=== PATIENT | female | born 1980 | race Caucasian/White ===

== ENCOUNTER 2017-01-21 18:26 | Emergency (ER) | payer BC ==
[2017-01-21 18:38] VITALS: BP 118/92
[2017-01-21] MEDS ORDERED: Acetaminophen/HYDROcodone 325-5 MG Tab PO ONE (19:02)
--- NOTE | 2017-01-21 19:06 | EDM.PDOC ---
ED HPI GENERAL MEDICAL PROBLEM - General Chief Complaint: Lower Extremity Injury/Pain Stated Complaint: RT FOOT PAIN Time Seen by Provider: 01/21/17 18:49 Source of Information: Reports: Patient History Limitations: Reports: No Limitations - History of Present Illness INITIAL COMMENTS - FREE TEXT/NARRATIVE: Patient is a 36-year-old female who presents to the ED complaining of right foot pain. [facility] that [facility] foot/ankle needed to pop. Pain has worsened throughout the course of the afternoon. States she's been unable to place any weight. She utilizes crutches to ambulate to the ED. Pain is located from the arch of the right foot extends over the dorsal aspect into the fifth metatarsal. She has increasing pain with flexion extension of her toes and also of the ankle. No known trauma precipitated this discomfort today. Denies any numbness or tingling, swelling, bruising, redness, increased warmth to any joints, history of gout, or any additional complaints. Pain is currently a 10 out of 10. Of note patient did stop the patient toe on the right foot proximal to half weeks ago with no residual symptoms. Right Feet Pain Score (Numeric/FACES): 10 - Related Data Allergies Allergy/AdvReac Type Severity Reaction Status Date / Time Penicillins Allergy Hives Verified 01/21/17 18:39 Home Meds: Home Meds Acetaminophen/HYDROcodone [Warren 325-5 MG] 1 tab PO Q6H PRN #8 tablet 01/21/17 [ Rx] LORazepam [Ativan] 0.5 mg PO BID PRN 01/21/17 [History] Past Medical History Cardiovascular History: Reports: Other (See Below) Other Cardiovascular History: SVT Psychiatric History: Reports: Anxiety Oncologic (Cancer) History: Reports: Other (See Below) Other Oncologic History: positive breast ca gene - Past Surgical History GI Surgical History: Reports: Appendectomy, Other (See Below) Other GI Surgeries/Procedures: large bowel resection Female Surgical History: Reports: Hysterectomy Social & Family History - Family History Oncologic: Reports: Breast - Tobacco Use Smoking Status *Q: Current Every Day Smoker Years of Tobacco use: 1 Packs/Tins Daily: 0.5 - Caffeine Use Caffeine Use: Reports: Coffee - Recreational Drug Use Recreational Drug Use: Yes Review of Systems - Review of Systems Review Of Systems: ROS reveals no pertinent complaints other than HPI. ED EXAM, GENERAL - Physical Exam Exam: See Below Exam Limited By: No Limitations General Appearance: Alert, WD/WN, No Apparent Distress Ears: Hearing Grossly Normal Nose: Normal Inspection Throat/Mouth: Normal Voice, No Airway Compromise Neck: Normal Inspection, Supple Respiratory/Chest: No Respiratory Distress, No Accessory Muscle Use Cardiovascular: Normal Peripheral Pulses, Regular Rate, Rhythm Peripheral Pulses: 2+: Posterior Tibial (R), Dorsalis Pedis (R) Extremities: Normal Inspection, No Pedal Edema, Normal Capillary Refill, Other ( Pain with palpation of the right foot along the plantar aspect of the foot and also dorsal. Pain with palpation of the right arch extending over the first second third fourth metatarsals. Increased pain with flexion and extension of the toes and also the ankle. No obvious deformity, ecchymosis, swelling, redness , or other concerning findings. Unknown etiology current complaint.) Neurological: Alert, Oriented, CN II-XII Intact, No Motor/Sensory Deficits Psychiatric: Normal Affect, Normal Mood Skin Exam: Warm, Dry, Intact, Normal Color Course - Vital Signs Last Recorded V/S: Last Vital Signs Temp 99.5 F 01/21/17 18:34 Pulse 93 01/21/17 18:34 Resp 14 01/21/17 18:34 BP 118/92 H 01/21/17 18:34 Pulse Ox 99 01/21/17 18:34 - Orders/Labs/Meds Orders: Active Orders 24 hr Category Date Time Status Foot Comp Min 3V Rt [CR] Stat Exams 01/21/17 19:02 Taken Meds: Medications Discontinued Medications Generic Name Dose Route Start Last Admin Trade Name Shashi PRN Reason Stop Dose Admin Hydrocodone Bitart/Acetaminophen 1 tab 01/21/17 19:02 01/21/17 19:37 Warren 325-5 Mg PO 01/21/17 19:03 1 tab ONETIME ONE Administration - Re-Assessments/Exams Free Text/Narrative Re-Assessment/Exam: Ordered x-ray of the right foot and also Warren 5/325 one tab by mouth. 01/21/17 19:21 X-ray of the right foot reviewed with Dr. Sharif. No acute bony abnormalities noted. Unclear etiology current complaint. Most likely the patient has sprained/strain of muscle/ligament within the foot. Jesse wrap will be applied. She has crutches already. Discharge instructions as documented. Departure - Departure Time of Disposition: 19:23 Disposition: Home, Self-Care 01 Condition: Good Clinical Impression: Foot pain, right, Sprain, strain - Discharge Information Prescriptions: Acetaminophen/HYDROcodone [Warren 325-5 MG] 1 tab PO Q6H PRN #8 tablet PRN Reason: Pain (Severe 7-10) Instructions: Pain Medicine Instructions, [id number], Crutch Use, Easy-to- Read, Foot Sprain Referrals: Estela Moon NP [Primary Care Provider] - Rik Bashir MD [Physician] - Forms: ED Department Discharge Additional Instructions: Unclear etiology of current complaint at this point. Maybe related to strain/ sprain of the foot that has worsened throughout the course today with being on your feet. Thus will have you be nonweightbearing for the next 3-5 days. Advancing weight thereafter as tolerated. Utilize the Jesse wrap as needed. Elevate when able to reduce pain. Suggest placement of ice to the affected area as needed. Take ibuprofen and Tylenol in alternating fashion for discomfort. For pain not relieved with the above therapies take Warren one tablet every [address] this evening nor while taking the Warren. Follow-up with orthopedic surgeon in 7-10 days if symptoms have not drastically improved. Return to ED for any new or worsening symptoms. - My Orders Last 24 Hours: My Active Orders 01/21/17 19:02 Foot Comp Min 3V Rt [CR] Stat - Assessment/Plan Last 24 Hours: My Active Orders 01/21/17 19:02 Foot Comp Min 3V Rt [CR] Stat
--- NOTE | 2017-01-22 08:32 | CR ---
Right foot: 4 views of the right foot were obtained. Comparison: No previous foot study. No fracture, dislocation or other bony abnormality is seen. Impression: 1. No abnormality is identified on right foot study. Diagnostic code #1
== END 2017-01-21 20:05 | disposition home or self-care (01) ==
LOC: JD.ED 18:26
DX: S93.601A Unspecified sprain of right foot, initial encounter (principal); S96.911A Strain of unspecified muscle and tendon at ankle and foot level, right foot, initial encounter; Z88.0 Allergy status to penicillin; Z90.49 Acquired absence of other specified parts of digestive tract; Z90.710 Acquired absence of both cervix and uterus; X50.9XXA Other and unspecified overexertion or strenuous movements or postures, initial encounter
CPT/HCPCS: 73630; 99283; A9270